=== PATIENT | female | born 1970 | race Two or more races ===

== ENCOUNTER 2020-04-21 20:45 | Emergency (ER) | payer SELFPAY ==
[2020-04-21] MEDS: Acetaminophen/HYDROcodone 325-5 MG Tab PO ONE (21:21)
[2020-04-21] MEDS: fentaNYL 100 MCG/2 ML SDV IVPUSH ONE (21:25)
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
[2020-04-21] MEDS: Ibuprofen 200 MG Tab PO ONE (22:40)
[2020-04-21] MEDS: Silver Sulfadiazine 1% Crm 50 GM Tube TOP ONE (22:41)
[2020-04-22] MEDS ORDERED: Gabapentin 300 MG Cap PO ONE (22:44)
== END 2020-04-21 23:05 | disposition home or self-care (01) ==
LOC: CC.ED 20:45
DX: T23.261A Burn of second degree of back of right hand, initial encounter (principal); T23.262A Burn of second degree of back of left hand, initial encounter; T21.22XA Burn of second degree of abdominal wall, initial encounter; T24.202A Burn of second degree of unspecified site of left lower limb, except ankle and foot, initial encounter; T24.201A Burn of second degree of unspecified site of right lower limb, except ankle and foot, initial encounter; T22.111A Burn of first degree of right forearm, initial encounter; Z88.2 Allergy status to sulfonamides; X10.2XXA Contact with fats and cooking oils, initial encounter
CPT/HCPCS: 16020; 99283; A9270

== ENCOUNTER 2021-02-28 23:25 | Emergency (ER) | payer MEDICAID ==
[2021-02-28] MEDS ORDERED: Lidocaine 2% Viscous Solution 15 ML Cup PO ONE (23:54)
[2021-02-28] MEDS ORDERED: diphenhydrAMINE 12.5 MG/5 ML Liquid 5 ML UD Cup PO STA (23:54)
[2021-02-28] MEDS ORDERED: Aluminum Hydroxide/Magnesium Hydroxide/Simethicone Susp 30 ML Cup PO ONE (23:54)
--- NOTE | 2021-03-01 00:03 | EDM.PDOC ---
ED HPI GENERAL MEDICAL PROBLEM - General Chief Complaint: General Stated Complaint: dental pain Time Seen by Provider: 02/28/21 23:42 Source of Information: Reports: Patient History Limitations: Reports: No Limitations - History of Present Illness INITIAL COMMENTS - FREE TEXT/NARRATIVE: This patient is a 51 year old female that presents to the ER for dental pain. Patient reports that on Monday she was having dental pain and swelling to the right lower tooth. Patient reports that she went to a dentist and was told she needed to go to the ER for IV abx per patient. The patient reports she went to [facility] ER and was told she did not need IV abx, but was prescribed Augmentin. Patient reports she has been taking the Augmentin since Monday and it does not seem like it is helping the dental pain. Patient denies facial redness, n, v, d, f, airway closing. Onset Date: 02/26/21 Duration: Day(s): (2), Other (not improving) Location: Reports: Other (dental pain) Quality: Reports: Ache Severity: Mild Improves with: Reports: None Worsens with: Reports: None Associated Symptoms: Reports: No Other Symptoms. Denies: Confusion, Chest Pain, Cough, cough w sputum, Diaphoresis, Fever/Chills, Headaches, Loss of Appetite, Malaise, Nausea/Vomiting, Rash, Seizure, Shortness of Breath, Syncope, Weakness Treatments DIAGNOSTICS TECH: Reports: Acetaminophen, NSAIDS Tooth/Teeth Pain Score (Numeric/FACES): 7 - Related Data Allergies Allergy/AdvReac Type Severity Reaction Status Date / Time Sulfa (Sulfonamide Allergy Cannot Verified 02/28/21 23:33 Antibiotics) Remember Home Meds: Home Meds Amoxicillin/Clavulanate K [Augmentin 875-125 MG] 1 tab PO BID 02/28/21 [History] Clindamycin HCl 300 mg PO QID 7 Days #28 capsule 02/28/21 [Rx] Past Medical History - Past Health History Medical/Surgical History: Denies Medical/Surgical History ED ROS GENERAL - Review of Systems Review Of Systems: See Below Constitutional: Reports: No Symptoms HEENT: Reports: Dental Pain (#31 pain with swelling), Ear Pain (right). Denies: Ear Discharge, Eye Discharge, Eye Pain, Hearing Loss, Nosebleed, Nose Pain, Rhinitis, Sinus Problem, Throat Pain, Throat Swelling, Vision Change Respiratory: Reports: No Symptoms Cardiovascular: Reports: No Symptoms Endocrine: Reports: No Symptoms GI/Abdominal: Reports: No Symptoms : Reports: No Symptoms Musculoskeletal: Reports: No Symptoms Skin: Reports: No Symptoms Neurological: Reports: No Symptoms Psychiatric: Reports: No Symptoms Hematologic/Lymphatic: Reports: No Symptoms Immunologic: Reports: No Symptoms ED EXAM, GENERAL - Physical Exam Exam: See Below Exam Limited By: No Limitations General Appearance: Alert, WD/WN, No Apparent Distress, Anxious Eye Exam: Bilateral Eye: Normal Inspection, PERRL Ears: Normal External Exam, Normal Canal, Hearing Grossly Normal, Normal TMs Ear Exam: Bilateral Ear: Auricle Normal, Canal Normal, TM normal Nose: Normal Inspection, Normal Mucosa, No Blood Throat/Mouth: Normal Lips, Normal Oropharynx, Normal Voice, No Airway Compromise, Inflammation (#31 tooth gum. ), Other (mild dental decay throughout. #31 dental decay with cavity and small, mild abscess. No facial cellulities, no redness, no heat. ) Head: Atraumatic, Normocephalic, Facial Swelling (mild swelling right jaw lower at tooth #31.). No: Sinus Tenderness Neck: Normal Inspection, Supple, Non-Tender, Full Range of Motion. No: Limited Range of Motion, Lymphadenopathy (L), Lymphadenopathy (R), Tender Lateral, Tender Midline Respiratory/Chest: No Respiratory Distress, Lungs Clear, Normal Breath Sounds, No Accessory Muscle Use Cardiovascular: Normal Peripheral Pulses, Regular Rate, Rhythm, No Edema, No Gallop, No JVD, No Murmur, No Rub Peripheral Pulses: 2+: Radial (L), Radial (R) Back Exam: Normal Inspection Extremities: Normal Inspection, Non-Tender, No Pedal Edema, Normal Capillary Refill Neurological: Alert, Oriented, Normal Cognition, Normal Gait Psychiatric: Anxious Skin Exam: Warm, Dry, Intact, Normal Color, No Rash Lymphatic: No Adenopathy Course - Vital Signs Last Recorded V/S: Last Vital Signs Temp 97.9 F 02/28/21 23:26 Pulse 95 02/28/21 23:26 Resp 16 02/28/21 23:26 BP 145/80 H 02/28/21 23:26 Pulse Ox 100 02/28/21 23:26 - Orders/Labs/Meds Orders: Active Orders 24 hr Category Date Time Status Alum Hydrox/Mag Hydrox/Simeth [Mag-Al Plus] Med 02/28/21 23:54 Once 30 ml PO ONETIME ONE Lidocaine 2% [Xylocaine 2% Viscous] Med 02/28/21 23:54 Once 15 ml PO ONETIME ONE diphenhydrAMINE [Benadryl] Med 02/28/21 23:54 Stat 25 mg PO NOW STA Departure - Departure Time of Disposition: 23:55 Disposition: Home, Self-Care 01 Condition: Fair Clinical Impression: Dental abscess - Discharge Information *PRESCRIPTION DRUG MONITORING PROGRAM REVIEWED*: Not Applicable *COPY OF PRESCRIPTION DRUG MONITORING REPORT IN PATIENT MANNY: Not Applicable Prescriptions: Clindamycin HCl 300 mg PO QID 7 Days #28 capsule Instructions: Dental Abscess, [id number] Additional Instructions: Followup with a dentist Return to the ER for emergencies such as fever, vomiting, airway closing, facial redness Cotton ball Mixture: Lidocaine, Benadryl, Maalox: Apply to painful tooth as needed May take Tylenol of IbuProfen for pain Clindamycin 300mg 1 pill every 6 hours for 7 days #28 no refill: Sent to pharmacy: May sampler pickup during normal business hours Stop Augmentin Sepsis Event Note (ED) - Evaluation Sepsis Screening Result: No Definite Risk - Focused Exam Vital Signs: Vital Signs Temp Pulse Resp BP Pulse Ox 02/28/21 23:26 97.9 F 95 16 145/80 H 100 - My Orders Last 24 Hours: My Active Orders 02/28/21 23:54 Alum Hydrox/Mag Hydrox/Simeth [Mag-Al Plus] 30 ml PO ONETIME ONE Lidocaine 2% [Xylocaine 2% Viscous] 15 ml PO ONETIME ONE 02/28/21 23:54 diphenhydrAMINE [Benadryl] 25 mg PO NOW STA - Assessment/Plan Last 24 Hours: My Active Orders 02/28/21 23:54 Alum Hydrox/Mag Hydrox/Simeth [Mag-Al Plus] 30 ml PO ONETIME ONE Lidocaine 2% [Xylocaine 2% Viscous] 15 ml PO ONETIME ONE 02/28/21 23:54 diphenhydrAMINE [Benadryl] 25 mg PO NOW STA Plan: PLEASE SEE RN NOTE FOR PFSH
== END 2021-03-01 00:15 | disposition home or self-care (01) ==
LOC: CC.ED 23:25
DX: K04.7 Periapical abscess without sinus (principal); K02.9 Dental caries, unspecified; Z88.2 Allergy status to sulfonamides
CPT/HCPCS: 99282; A9270-GY

== ENCOUNTER 2021-10-07 19:26 | Emergency (ER) | payer MEDICAID ==
[2021-10-07] MEDS: Albuterol/Ipratropium 3.0-0.5 MG/3 ML Neb Soln NEB ONE (19:45)
[2021-10-07] MEDS: Albuterol/Ipratropium 3.0-0.5 MG/3 ML Neb Soln ONE (19:45)
--- NOTE | 2021-10-07 19:56 | EDM.PDOC ---
ED HPI GENERAL MEDICAL PROBLEM - General Chief Complaint: General Stated Complaint: shortness of breath Time Seen by Provider: 10/07/21 19:45 Source of Information: Reports: Patient, RN History Limitations: Reports: No Limitations - History of Present Illness INITIAL COMMENTS - FREE TEXT/NARRATIVE: Pt states that she was at her sisters and she has cats and dogs and she is aller gic to them. She states that the allergies triggered her allergies. She did not have an inhaler so she could not treat it and presented to the ER for care. When arriving here she was wheezing and SOB. She was given a nebulizer immediately. When I arrived she states that she was already feeling better and she could breathe easier. Onset: Sudden Duration: Getting Worse Location: Reports: Chest - Related Data Allergies Allergy/AdvReac Type Severity Reaction Status Date / Time Sulfa (Sulfonamide Allergy Cannot Verified 10/07/21 19:35 Antibiotics) Remember Home Meds: Home Meds . [No Known Home Meds] 10/07/21 [History] Past Medical History - Past Health History Medical/Surgical History: Denies Medical/Surgical History Respiratory History: Reports: Asthma Social & Family History - Family History Family Medical History: No Pertinent Family History - Tobacco Use Tobacco Use Status *Q: Never Tobacco User Second Hand Smoke Exposure: No ED ROS GENERAL - Review of Systems Review Of Systems: See Below Constitutional: Reports: No Symptoms. Denies: Fever, Chills HEENT: Reports: No Symptoms Respiratory: Reports: Wheezing. Denies: Cough, Sputum Cardiovascular: Denies: Chest Pain, Edema GI/Abdominal: Reports: No Symptoms ED EXAM, GENERAL - Physical Exam Exam: See Below Exam Limited By: No Limitations General Appearance: Alert, WD/WN Ears: Normal External Exam, Normal TMs Nose: Normal Inspection Throat/Mouth: Normal Inspection, Normal Oropharynx, Normal Voice, No Airway Compromise Head: Atraumatic, Normocephalic Neck: Normal Inspection, Supple, Non-Tender Respiratory/Chest: No Respiratory Distress, Wheezing (to the upper lobes) Cardiovascular: Normal Peripheral Pulses, Regular Rate, Rhythm, No Edema GI/Abdominal: Normal Bowel Sounds, Soft, Non-Tender Back Exam: Normal Inspection Extremities: Normal Inspection, No Pedal Edema, Normal Capillary Refill Neurological: Alert, Oriented Skin Exam: Warm, Dry, Intact Course - Vital Signs Last Recorded V/S: Last Vital Signs Temp 98.3 F 12/16/21 19:28 Pulse 84 10/07/21 19:28 Resp 20 10/07/21 19:28 BP 149/101 H 10/07/21 19:28 Pulse Ox 91 L 10/07/21 19:28 - Orders/Labs/Meds Orders: Active Orders 24 hr Category Date Time Status RT Aerosol Therapy [RC] ASDIRECTED Care 10/07/21 19:45 Active RT Post Treatment Assessment [RC] Click to Edit Care 10/07/21 19:50 Ordered RT Pre-Treatment Assessment [RC] Click to Edit Care 10/07/21 19:50 Ordered Albuterol [Ventolin HFA] Med 10/07/21 19:48 Ordered 1 gm INH Q4H PRN predniSONE Med 10/07/21 19:50 Stat 40 mg PO NOW STA Meds: Medications Discontinued Medications Generic Name Dose Route Start Last Admin Trade Name Freq PRN Reason Stop Dose Admin Albuterol/Ipratropium Confirm 10/07/21 19:08 10/07/21 19:45 Albuterol/Ipratropium 3.0-0.5 Mg/3 Ml Neb Soln Administered 10/07/21 19:09 3 ml Dose Administration 3 ml .ROUTE .STK-MED ONE Albuterol/Ipratropium 3 ml 10/07/21 19:44 10/07/21 19:45 Albuterol/Ipratropium 3.0-0.5 Mg/3 Ml Neb Soln NEB 10/07/21 19:45 Not Given ONETIME ONE Departure - Departure Time of Disposition: 19:52 Disposition: Home, Self-Care 01 Condition: Good Clinical Impression: Cat allergies Asthma attack Qualifiers: Asthma severity: moderate Asthma persistence: unspecified Qualified Code(s): J45.901 - Unspecified asthma with (acute) exacerbation - Discharge Information *PRESCRIPTION DRUG MONITORING PROGRAM REVIEWED*: Not Applicable *COPY OF PRESCRIPTION DRUG MONITORING REPORT IN PATIENT MANNY: Not Applicable Instructions: Asthma, Adult Additional Instructions: take prednisone 40 mg daily for 5 days. cell support operator prescription tomorrow. 1st dose given in the ER. claritin 10 mg daily to help with allergy control albuterol inhaler 2 puffs every 4 hours as needed for allergies Sepsis Event Note (ED) - Evaluation Sepsis Screening Result: No Definite Risk - Focused Exam Vital Signs: Vital Signs Temp Pulse Resp BP Pulse Ox 10/07/21 19:28 98.3 F 84 20 149/101 H 91 L - Problem List & Annotations (1) Asthma attack SNOMED Code(s): 524443879 Code(s): J45.901 - UNSPECIFIED ASTHMA WITH (ACUTE) EXACERBATION Status: Acute Priority: High Qualifiers: Asthma severity: moderate Asthma persistence: unspecified Qualified Code(s): J45.901 - Unspecified asthma with (acute) exacerbation (2) Cat allergies SNOMED Code(s): 309453292 Code(s): J30.81 - ALLERGIC RHINITIS DUE TO ANIMAL (CAT) (DOG) HAIR AND DANDER Status: Acute Priority: Medium - Problem List Review Problem List Initiated/Reviewed/Updated: Yes - My Orders Last 24 Hours: My Active Orders 10/07/21 19:45 RT Aerosol Therapy [RC] ASDIRECTED 10/07/21 19:48 Albuterol [Ventolin HFA] 1 gm INH Q4H PRN 10/07/21 19:50 RT Post Treatment Assessment [RC] Click to Edit RT Pre-Treatment Assessment [RC] Click to Edit 10/07/21 19:50 predniSONE 40 mg PO NOW STA - Assessment/Plan Last 24 Hours: My Active Orders 10/07/21 19:45 RT Aerosol Therapy [RC] ASDIRECTED 10/07/21 19:48 Albuterol [Ventolin HFA] 1 gm INH Q4H PRN 10/07/21 19:50 RT Post Treatment Assessment [RC] Click to Edit RT Pre-Treatment Assessment [RC] Click to Edit 10/07/21 19:50 predniSONE 40 mg PO NOW STA
[2021-10-07] MEDS: predniSONE 20 MG Tab PO STA (20:06)
[2021-10-07] MEDS: Albuterol 8 GM Inhaler INH PRN (20:06)
== END 2021-10-07 20:14 | disposition home or self-care (01) ==
LOC: CC.ED 19:26
DX: J45.901 Unspecified asthma with (acute) exacerbation (principal); Z88.2 Allergy status to sulfonamides; Z91.09 Other allergy status, other than to drugs and biological substances
CPT/HCPCS: 99284-25; A9270-GY; J7512; J7620-GY

== ENCOUNTER 2025-05-25 15:40 | Emergency (ER) | payer MEDICAID | END 2025-05-25 16:22 | disposition home or self-care (01) | LOC: CC.ED 15:40 | DX: S93.402A Sprain of unspecified ligament of left ankle, initial encounter (principal); Z88.2 Allergy status to sulfonamides; W19.XXXA Unspecified fall, initial encounter | CPT/HCPCS: 73610-LT; 99283 ==